=== PATIENT | female | born 1990 | race Caucasian/White ===

== ENCOUNTER 2016-09-12 10:18 | Emergency (ER) | payer OTHER ==
[~2016-09-12] VITALS: Ht 160 cm; Wt 107.0 kg
[~2016-09-12 10:18] MED LIST: HYDR-3498 PO; HYDR-906 PO; IBUP-1542 PO; LOPE2CAP PO; MELO-109 PO; NITR-58 PO; OMEP20CA16; ONDA4TAB8 PO; PHEN-538 PO; PRED20TA PO; TRAM50TA2 PO
[2016-09-12 10:27] VITALS: Ht 160 cm; Wt 107.0 kg
[2016-09-12 12:53] LABS: ADD SCAN DIFF NO
[2016-09-12 12:56] LABS: BASOPHIL # 0.1 10^3/ul (0.0-0.1); BASOPHILS % 0.6 % (0.0-2.0); EOSINOPHILS # 0.1 10^3/ul (0.0-0.5); EOSINOPHILS % 1.2 % (0.0-7.0); HEMATOCRIT 40.9 % (37.0-47.0); HEMOGLOBIN 13.6 g/dl (12.0-16.0); LYMPHOCYTES # 3.1 10^3/ul (0.8-2.9); LYMPHOCYTES % 29.4 % (15.0-51.0); MEAN CORPUSCULAR HEMOGLOBIN 31.7 pg (29.0-33.0); MEAN CORPUSCULAR HGB CONC 33.3 g/dl (32.0-37.0); MEAN CORPUSCULAR VOLUME 95.3 fl (82.0-101.0); MEAN PLATELET VOLUME 9.4 fl (7.4-10.4); MONOCYTE # 0.7 10^3/ul (0.3-0.9); MONOCYTES % 6.7 % (0.0-11.0); NEUTROPHIL # 6.5 10^3/ul (1.6-7.5); NEUTROPHILS % 61.7 % (39.0-77.0); PLATELET COUNT 317 10^3/UL (140-415); RED BLOOD COUNT 4.29 10^6/ul (4.20-5.40); RED CELL DISTRIBUTION WIDTH 12.7 % (11.5-14.5); WHITE BLOOD COUNT 10.6 10^3/ul (4.8-10.8)
[2016-09-12 13:00] LABS: ADD UMIC YES; URINE BILIRUBIN (Dip) NEGATIVE (NEGATIVE); URINE BLOOD (Dip) 3+ (NEGATIVE); URINE COLOR LT. YELLOW (YELLOW); URINE GLUCOSE (Dip) NEGATIVE (NEGATIVE); URINE KETONES (Dip) NEGATIVE (NEGATIVE); URINE LEUKOCYTE ESTERASE (Dip) NEGATIVE (NEGATIVE); URINE NITRITE (Dip) NEGATIVE (NEGATIVE); URINE TOTAL PROTEIN (Dip) NEGATIVE (NEGATIVE); URINE UROBILINOGEN (Dip) 0.2 E.U./dL (0.1-1.0)
[2016-09-12 13:12] LABS: ALBUMIN 4.7 g/dl (3.3-4.9)
[2016-09-12 13:13] LABS: POTASSIUM 4.1 mmol/L (3.5-5.1)
[2016-09-12 13:15] LABS: ALBUMIN/GLOBULIN RATIO 1.23; BILIRUBIN,INDIRECT 0.1 mg/dl (0-1.1); BILIRUBIN,TOTAL 0.1 mg/dl (0.2-1.3); CREATININE 0.73 mg/dl (0.44-1.00); TOTAL PROTEIN 8.5 g/dl (6.1-8.1)
[2016-09-12 13:16] LABS: CALCIUM 9.5 mg/dl (8.4-10.2)
[2016-09-12 13:18] LABS: BACTERIA,URINE MODERATE; SQUAMOUS EPITHELIAL CELL,UR MODERATE
[2016-09-12 13:49] VITALS: BP 130/70; PULSE 78; RESP 18; TEMP 98.2
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
== END 2016-09-12 13:49 | disposition home or self-care (01) ==
LOC: FTE 10:18
DX: R42 Dizziness and giddiness (principal)
CPT/HCPCS: 80053; 81001; 81003; 85025; 93005; Z7502

== ENCOUNTER 2017-06-10 19:15 | Emergency (ER) | END 2017-06-10 23:28 | disposition home or self-care (01) ==

== ENCOUNTER 2017-06-12 21:31 | Emergency (ER) | END 2017-06-13 00:31 | disposition left against medical advice (07) ==

== ENCOUNTER 2019-01-13 20:28 | Emergency (ER) | payer OTHER ==
[~2019-01-13] VITALS: Ht 160 cm; Wt 113.6 kg
[~2019-01-13 20:28] MED LIST changes: +HYDR-4011 PO; -HYDR-906 PO; -MELO-109 PO; +MELO7.5T38 PO; +METO5TAB2 PO; +ONDA4TAB14 PO; +PANT40TA3 PO; +SUMA50TA3 PO
[2019-01-13 20:35] VITALS: BP 134/85; PULSE 85; RESP 23; Ht 160 cm; Wt 113.6 kg
[2019-01-13] MEDS ORDERED: ONDANSETRON (ODT) 4 MG TAB ODT STA (21:01)
[2019-01-13] MEDS ORDERED: LIDOCAINE/MYLANTA 40 ML BTL PO ONE (21:30)
[2019-01-13] MEDS ORDERED: PANTOPRAZOLE (EC) 40 MG TAB PO ONE (21:30)
[2019-01-13] MEDS ORDERED: HYDROCODONE/APAP (10/325) TAB PO ONE (22:00)
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
== END 2019-01-13 21:56 | disposition home or self-care (01) ==
LOC: FTE 20:28
DX: K29.00 Acute gastritis without bleeding (principal)
CPT/HCPCS: 81025; Z7502; Z7610; 99283